=== PATIENT | male | born 1980 | race Caucasian/White ===

== ENCOUNTER 2017-11-08 08:23 | Day surgery (SDC) | payer OTHER ==
[~2017-11-08] VITALS: Ht 175.3 cm; Wt 93.0 kg
[~2017-11-08 08:23] MED LIST: BUPIVAcaine/PF 2.5 mg/ml (0.25%) 30ml vial ONE; GABA-532 PO; ceFAZolin 2gm in dextrose, iso 100 ML IV ONE; famotidine 20mg tablet PO ONE; ringers solution, lacted 1,000 ML IV SCH
[2017-11-08 08:30] VITALS: BP 122/86
[2017-11-08] MEDS ORDERED: LIDOcaine 1% (10mg/ml) 2ml vial ONE (09:07)
[2017-11-08] MEDS ORDERED: LIDOcaine 0.5% (5mg/ml) 50ml vial ONE (09:47)
[2017-11-08] MEDS ORDERED: midazolam 2 mg/2 ml injection ONE ×3 (09:49→10:10)
[2017-11-08] MEDS ORDERED: fentaNYL/PF 50MCG/1 ML 2ML syringe ONE ×2 (09:49→10:09)
[2017-11-08 10:27] VITALS: BP 127/89
[2017-11-08 10:37] VITALS: BP 117/73
[2017-11-08 10:47] VITALS: BP 114/76
[2017-11-08 10:57] VITALS: BP 109/79
== END 2017-11-08 10:57 | disposition home or self-care (01) ==
LOC: PRE-OP 08:23
PROVIDERS: ATTEND Orthopaedic Surgery Hand Surgery
DX: G56.02 Carpal tunnel syndrome, left upper limb (principal); Z98.890 Other specified postprocedural states; Z72.89 Other problems related to lifestyle; Z88.8 Allergy status to other drugs, medicaments and biological substances; Z79.899 Other long term (current) drug therapy; Z87.891 Personal history of nicotine dependence
CPT/HCPCS: 29848; A6449; J0690; J2001; J2250; J3010; J3490; J7120; A7000

== ENCOUNTER 2024-07-13 11:02 | Outpatient (CLI) | payer OTHER, BC ==
[~2024-07-13 11:02] MED LIST changes: -BUPIVAcaine/PF 2.5 mg/ml (0.25%) 30ml vial ONE; -ceFAZolin 2gm in dextrose, iso 100 ML IV ONE; -famotidine 20mg tablet PO ONE; -ringers solution, lacted 1,000 ML IV SCH
== END 2024-07-13 23:59 | disposition home or self-care (01) ==
LOC: RAD 11:02
PROVIDERS: ATTEND Internal Medicine Infectious Disease
DX: Z11.1 Encounter for screening for respiratory tuberculosis (principal)
CPT/HCPCS: 71046